=== PATIENT | female | born 1970 | race Caucasian/White ===

== ENCOUNTER 2016-09-10 14:37 | Emergency (ER) | payer BC ==
[~2016-09-10] VITALS: Ht 162.6 cm; Wt 93.9 kg
[~2016-09-10 14:37] MED LIST: FURO-149 PO; IRON45TA5 PO; PHEN-561 PO; POTA2.5T PO
[2016-09-10 14:46] VITALS: BP_SYST 137
[2016-09-10] MEDS ORDERED: ASPIRIN 325 MG TABLET PO ONE (15:00)
[2016-09-10 15:17] LABS: BASOPHILS # (AUTO) 0.1 K/uL (0.0-0.2); BASOPHILS % (AUTO) 0.4 % (0.0-2.0); EOSINOPHILS # (AUTO) 0.3 K/uL (0.0-0.4); EOSINOPHILS % (AUTO) 2.2 % (0.0-4.0); HEMATOCRIT 36.2 % (36-48); HEMOGLOBIN 11.3 g/dL (12.0-16.0); MEAN CORPUSCULAR HEMOGLOBIN 19 pg (27-31); MEAN CORPUSCULAR HGB CONC 31 % (32-36); MEAN CORPUSCULAR VOLUME 60 fL (79.0-98.0); MONOCYTES # (AUTO) 0.6 K/uL (0.0-1.0); MONOCYTES % (AUTO) 4.9 % (1.7-9.3); NEUTROPHILS # (AUTO) 8.5 K/uL (1.8-7.7); NEUTROPHILS % (AUTO) 68.5 % (40.0-70.0); PLATELET COUNT (AUTO) 423 K/uL (130-430); RED BLOOD CELL COUNT(AUTO) 6.04 MIL/uL (4.2-6.2); RED CELL DISTRIBUTION WIDTH 18.2 % (9.0-15.0); WHITE BLOOD COUNT (AUTO) 12.5 K/uL (4.8-10.8)
[2016-09-10 15:21] LABS: CALCIUM 8.9 mg/dL (8.4-11.0); CREATININE 1.03 mg/dL (0.55-1.30); POTASSIUM 3.7 mmol/L (3.5-5.1)
[2016-09-10 15:25] LABS: PROTHROMBIN TIME 10.5 SECS (9.5-12.5)
[2016-09-10 15:26] LABS: TOTAL BILIRUBIN 0.4 mg/dL (0.0-1.0); TOTAL PROTEIN, SERUM 8.7 g/dL (6.4-8.3)
--- NOTE | 2016-09-10 15:42 | NUR ---
Patient to ER bed 2 to gown for evaluation by marisel THURMAN. Side rails up. Report given to melisa thurman.
--- NOTE | 2016-09-10 15:45 | NUR ---
Pt transferred from room 02 to room 06.
--- NOTE | 2016-09-10 15:50 | NUR ---
Dr. Mosley at bedside examining patient.
--- NOTE | 2016-09-10 16:00 | NUR ---
Patient AAOx4, no acute distress. Patient states she has 7/10 pain on "right side on rib cage" that radiates to back of right side. Patient states that she "had a cough" that started at the same time with onset of pain and "itching with urination." Denies any mechanism of injury. Patient states she has been "constipated for a few days." Patient also states pain level "fluctuates up and down as low as 5 and as high as 8." No obvious deformities or bruising noted. No other complaints/injuries per patient or noted.
[2016-09-10 16:13] LABS: BILIRUBIN,URINE NEGATIVE (NEGATIVE); BLOOD, URINE NEGATIVE (NEGATIVE); CLARITY/URINE CLEAR (CLEAR); COLOR,URINE YELLOW (YELLOW); GLUCOSE,URINE NEGATIVE (NEGATIVE); KETONES,URINE NEGATIVE (NEGATIVE); LEUKOCYTE ESTERASE ,URINE NEGATIVE (NEGATIVE); NITRITE, URINE NEGATIVE (NEGATIVE); PROTEIN URINE NEGATIVE (NEGATIVE); UROBILINOGEN,URINE 0.2 (0.2-1.0)
--- NOTE | 2016-09-10 16:15 | NUR ---
Administered meds per MD order. Tolerated well. Will continue to monitor.
--- NOTE | 2016-09-10 17:00 | NUR ---
Stable, no acute distress. States pain is fluctuating, down to 4/10 on right side. Will continue to monitor.
--- NOTE | 2016-09-10 18:35 | NUR ---
Dr. Mosley at bedside examining patient.
[2016-09-10] MEDS ORDERED: KETOROLAC TROMETHAMINE 30 MG VIAL IVP ONE (18:45)
--- NOTE | 2016-09-10 18:56 | NUR ---
Administered PRN pain medication. Tolerated well. Will continue to monitor.
[2016-09-10 19:20] VITALS: BP_SYST 130
--- NOTE | 2016-09-10 19:20 | NUR ---
Patient given written and verbal discharge instructions and verbalizes understanding. ER MD discussed with patient the results and treatment provided. Patient in stable condition. ID arm band removed. IV catheter removed intact and dressing applied, no active bleeding. No rx given. Patient educated on pain management and to follow up with PMD. Pain Scale 0/10. Opportunity for questions provided and answered.
== END 2016-09-10 19:20 | disposition home or self-care (01) ==
LOC: SED 14:37
DX: R07.89 Other chest pain (principal); R05 Cough; E78.00 Pure hypercholesterolemia, unspecified
CPT/HCPCS: 36415; 71020; 80053; 81003; 83880; 84484; 85025; 85379; 85610; 85730; 93005; 96374; 99285; J1885

== ENCOUNTER 2018-04-28 05:24 | Inpatient (IN) | payer BC, MEDICAID ==
[~2018-04-28] VITALS: Ht 162.6 cm; Wt 89.8 kg
[2018-04-28 05:33] VITALS: BP_SYST 132
[2018-04-28] MEDS ORDERED: NITROGLYCERIN 0.4 MG TAB.SUBL SL ONE (06:00)
[2018-04-28] MEDS ORDERED: ASPIRIN 325 MG TABLET PO ONE (06:00)
[2018-04-28 06:16] LABS: BASOPHILS % (AUTO) 0.3 % (0.0-2.0); EOSINOPHILS # (AUTO) 0.3 K/uL (0.0-0.4); EOSINOPHILS % (AUTO) 3.1 % (0.0-4.0); HEMATOCRIT 33.7 % (36-48); HEMOGLOBIN 10.1 g/dL (12.0-16.0); LYMPHOCYTES # (AUTO) 2.9 K/uL (1.0-5.5); LYMPHOCYTES % (AUTO) 29.3 % (20.5-51.5); MEAN CORPUSCULAR HEMOGLOBIN 19 pg (27-31); MEAN CORPUSCULAR HGB CONC 30 % (32-36); MEAN CORPUSCULAR VOLUME 62 fL (79.0-98.0); MONOCYTES # (AUTO) 0.7 K/uL (0.0-1.0); MONOCYTES % (AUTO) 7.1 % (1.7-9.3); NEUTROPHILS # (AUTO) 5.9 K/uL (1.8-7.7); NEUTROPHILS % (AUTO) 60.2 % (40.0-70.0); PLATELET COUNT (AUTO) 425 K/uL (130-430); RED BLOOD CELL COUNT(AUTO) 5.45 MIL/uL (4.2-6.2); RED CELL DISTRIBUTION WIDTH 17.7 % (9.0-15.0); WHITE BLOOD COUNT (AUTO) 9.8 K/uL (4.8-10.8)
[2018-04-28 06:41] LABS: CALCIUM 9.2 mg/dL (8.4-11.0); CREATININE 0.71 mg/dL (0.55-1.30); INR 0.9 (0.8-1.2); POTASSIUM 4.1 mmol/L (3.5-5.1); PROTHROMBIN TIME 9.6 SECS (9.5-12.5)
[2018-04-28 06:45] LABS: ALBUMIN 3.6 g/dL (3.4-4.8); TOTAL BILIRUBIN 0.3 mg/dL (0.0-1.0)
[2018-04-28 07:39] LABS: BILIRUBIN,URINE NEGATIVE (NEGATIVE); BLOOD, URINE NEGATIVE (NEGATIVE); CLARITY/URINE SL HAZY (CLEAR); COLOR,URINE YELLOW (YELLOW); GLUCOSE,URINE NEGATIVE (NEGATIVE); KETONES,URINE NEGATIVE (NEGATIVE); LEUKOCYTE ESTERASE ,URINE NEGATIVE (NEGATIVE); NITRITE, URINE NEGATIVE (NEGATIVE); PROTEIN URINE NEGATIVE (NEGATIVE); UROBILINOGEN,URINE 0.2 (0.2-1.0)
[2018-04-28] MEDS ORDERED: FOLI-43 PO (08:00)
[2018-04-28] MEDS ORDERED: MIRA50TA PO (08:00)
[2018-04-28] MEDS ORDERED: OMEP20CA10 PO (08:00)
[2018-04-28 09:10] VITALS: BP_SYST 121
[2018-04-28] MEDS ORDERED: PANTOPRAZOLE SODIUM 40 MG TAB PO ONE (09:30)
[2018-04-28 09:50] LABS: CHOLESTEROL 226 mg/dL (<200); HDL CHOLESTEROL 42 mg/dL (>55); LDL CHOLESTEROL 148 mg/dL (<100); TRIGLYCERIDES 217 mg/dL (30-150)
[2018-04-28 12:00] VITALS: BP_SYST 108
[2018-04-29] MEDS ORDERED: PANTOPRAZOLE SODIUM 40 MG TAB PO SCH (06:00)
== END 2018-04-28 13:50 | disposition left against medical advice (07) | DRG 243 ==
LOC: SED 05:24 → STU 08:18
PROVIDERS: ADMIT Family Medicine; ATTEND Family Medicine
DX: K21.9 Gastro-esophageal reflux disease without esophagitis (principal); D64.9 Anemia, unspecified; E11.9 Type 2 diabetes mellitus without complications; E78.00 Pure hypercholesterolemia, unspecified; E78.5 Hyperlipidemia, unspecified; R07.89 Other chest pain; I10 Essential (primary) hypertension; F41.0 Panic disorder [episodic paroxysmal anxiety]; Z53.21 Procedure and treatment not carried out due to patient leaving prior to being seen by health care provider; Z87.891 Personal history of nicotine dependence; Z79.899 Other long term (current) drug therapy; Z82.49 Family history of ischemic heart disease and other diseases of the circulatory system
CPT/HCPCS: 36415; 71045; 80053; 80061; 81003; 82550-TC; 83880; 84484; 85025; 85610-TC; 85730-TC; 93005; 93306; 99285; G0378

== ENCOUNTER 2023-04-03 15:09 | Emergency (ER) | payer BC, MEDICAID ==
[~2023-04-03] VITALS: Ht 165.1 cm; Wt 79.4 kg
[~2023-04-03 15:09] MED LIST changes: +FOLI-43 PO; -FURO-149 PO; -IRON45TA5 PO; +MIRA50TA PO; +OMEP20CA15 PO; -POTA2.5T PO
[2023-04-03 15:52] VITALS: BP_SYST 121; PULSE 70; RESP 20; TEMP 98; O2SAT 99
[2023-04-03] MEDS ORDERED: ACETAMINOPHEN 500 MG TABLET PO ONE (16:45)
== END 2023-04-03 17:35 | disposition home or self-care (01) ==
LOC: SED 15:09
DX: S83.91XA Sprain of unspecified site of right knee, initial encounter (principal); I10 Essential (primary) hypertension; E11.9 Type 2 diabetes mellitus without complications; Z79.899 Other long term (current) drug therapy; E78.00 Pure hypercholesterolemia, unspecified; W18.30XA Fall on same level, unspecified, initial encounter; Y93.89 Activity, other specified; Y92.89 Other specified places as the place of occurrence of the external cause; Y99.8 Other external cause status
CPT/HCPCS: 73564; 99283